=== PATIENT | male | born 1990 | race African-American/Black ===

== ENCOUNTER 2023-09-01 09:14 | Emergency (ER) | payer OTHER ==
[~2023-09-01] VITALS: Ht 177.8 cm; Wt 136.0 kg
[2023-09-01 09:16] VITALS: O2SAT 99
[2023-09-01] MEDS ORDERED: AMLODIPINE 10MG TABLET PO ONE (10:15)
[2023-09-01 10:28] LABS: BASOPHILS % 0.7 % (0.0-2.0); EOSINOPHILS % 4.4 % (0.0-5.0); HEMATOCRIT. 40.9 % (42.0-52.0); HEMOGLOBIN. 13.8 g/dL (14.0-18.0); LYMPHOCYTES % 21.9 % (20.0-50.0); MEAN CORPUSCULAR HEMOGLOBIN 26.9 pg (28.0-32.0); MEAN CORPUSCULAR HGB CONC 33.6 g/dL (31.0-37.0); MONOCYTES % 9.9 % (2.0-8.0); NEUTROPHILS % 63.1 % (40.0-76.0); PLATELET 304 x1000/uL (130-400); RED BLOOD CELL COUNT 5.12 mill/uL (4.7-6.1); RED CELL DISTRIBUTION WIDTH 13.7 % (11.6-14.6); WHITE BLOOD COUNT 5.1 x1000/uL (4.5-11.0)
[2023-09-01 10:33] LABS: CARBON DIOXIDE 31 mEq/L (21-32); CHLORIDE 104 mEq/L (98-107); POTASSIUM 3.1 mEq/L (3.5-5.1); SODIUM 140 mEq/L (136-145)
[2023-09-01 10:34] LABS: CALCIUM 9.1 mg/dL (8.7-10.4)
[2023-09-01 10:37] LABS: PROTHROMBIN TIME 11.4 sec (9.6-11.0)
[2023-09-01 10:39] LABS: CREATININE 0.8 mg/dL (0.6-1.3); GLUCOSE 92 mg/dL (70-105); UREA NITROGEN BLOOD 7 mg/dL (9-23)
[2023-09-01 10:40] LABS: ETHANOL BLOOD < 10 mg/dL (<10)
[2023-09-01 10:41] LABS: TROPONIN I HIGH SENSITIVITY 12 ng/L (3.0-53)
[2023-09-01] MEDS: AMLODIPINE 5MG TABLET PO NR (11:12)
[2023-09-01] MEDS: POTASSIUM CHLORIDE 20MEQ TABLET SR PO ONE (11:59)
[2023-09-01 12:41] LABS: CLARITY URINE CLEAR (CLEAR); COLOR URINE YELLOW (YELLOW); GLUCOSE URINE NEGATIVE (NEGATIVE); KETONES URINE TRACE (NEGATIVE); LEUKOCYTE ESTERASE URINE NEGATIVE (NEGATIVE); NITRITE URINE NEGATIVE (NEGATIVE); OCCULT BLOOD URINE NEGATIVE (NEGATIVE); PROTEIN URINE NEGATIVE (NEGATIVE)
[2023-09-01] MEDS: LABETALOL 5MG/ML 4ML INJ IV ONE (12:41)
[2023-09-01 13:09] LABS: *AMPHETAMINES SCREEN URINE NEGATIVE (NEGATIVE); *BARBITURATES SCREEN URINE NEGATIVE (NEGATIVE); *BENZODIAZEPINES SCREEN URINE NEGATIVE (NEGATIVE); METHADONE URINE SCREEN NEGATIVE (NEGATIVE); OPIATES URINE SCREEN NEGATIVE (NEGATIVE)
[2023-09-01 13:10] LABS: PHENCYCLIDINE URINE SCREEN NEGATIVE (NEGATIVE)
[2023-09-01 13:11] LABS: ECSTASY MDMA SCREEN URINE NEGATIVE (NEGATIVE)
[2023-09-01 13:13] LABS: TROPONIN I HIGH SENSITIVITY 10 ng/L (3.0-53)
[2023-09-01 13:20] LABS: *COCAINE SCREEN URINE NEGATIVE (NEGATIVE)
[2023-09-01] MEDS: ASPIRIN 325MG EC TABLET PO ONE (13:45)
[2023-09-01 14:00] VITALS: TEMP 98.1
[2023-09-01 17:47] VITALS: BP 152/89; PULSE 67; RESP 16
== END 2023-09-01 18:24 | disposition short-term general hospital (02) ==
LOC: ER 09:14 → CANBEDREQ 17:56 → ER 18:24
DX: G45.9 Transient cerebral ischemic attack, unspecified (principal); I10 Essential (primary) hypertension; J45.909 Unspecified asthma, uncomplicated
CPT/HCPCS: 80305; 80048; 81003; 80320; 85025; 85610; 84484; 36415; 71045; 70450; 93005; 96374; 99285; J3490; Z7610; G0480

== ENCOUNTER 2025-02-01 15:55 | Emergency (ER) | payer OTHER ==
[~2025-02-01] VITALS: Ht 172.7 cm; Wt 135.0 kg
[2025-02-01 15:57] VITALS: O2SAT 97
[2025-02-01 16:03] VITALS: BP 180/100; PULSE 98; RESP 16; TEMP 36.9; O2SAT 98
[2025-02-01] MEDS ORDERED: TOPUD MT (18:18)
[2025-02-01] MEDS ORDERED: IBUP-2437 MT (18:18)
[2025-02-01] MEDS: IBUPROFEN 400MG TABLET PO ONE (18:29)
== END 2025-02-01 18:41 | disposition home or self-care (01) ==
LOC: ER 15:55
DX: S93.401A Sprain of unspecified ligament of right ankle, initial encounter (principal); I10 Essential (primary) hypertension; J45.909 Unspecified asthma, uncomplicated; X50.1XXA Overexertion from prolonged static or awkward postures, initial encounter; Y93.01 Activity, walking, marching and hiking; Y92.89 Other specified places as the place of occurrence of the external cause; Y99.8 Other external cause status
CPT/HCPCS: 73610; 99283